=== PATIENT | female | born 1990 | race Hispanic/Latino ===

== ENCOUNTER 2022-01-03 18:15 | Observation (INO) | payer OTHER, SELFPAY ==
[2022-01-03 18:40] VITALS: BP 117/58; PULSE 79
[2022-01-03 18:47] VITALS: TEMP 36.8
[2022-01-03 18:59] LABS: Appearance Urine Clear (Clear); Bilirubin Urine Negative (Negative); Color Urine Yellow (Yellow); Glucose Urine UA Negative (Negative); Ketones Urine Trace mg/dL (Negative); Leukocyte Esterase Ur Trace LEU/UL (Negative); Nitrate Urine Negative (Negative); Protein Urine Negative (Negative); Specific Grav Ur 1.025 (1.001-1.035); Urobilinogen Urine 0.2 mg/dL (<2.0)
[2022-01-03 19:02] LABS: Add Urine Microscopic? YES; Blood Urine Trace-Intact (Negative)
[2022-01-03 19:05] LABS: Bacteria Urine Trace /hpf; Mucus Urine Few /lpf; Squamous Epithelial Cell Urine Moderate /hpf (Few)
--- NOTE | 2022-01-03 19:29 | PC.NURSE ---
Updated Dr. Tay on patient UA results. Patient states she is having pain in her upper abdomen below the sternum. Patient states pain is intermittent and does not increase with palpation. FHT reactive and no contractions were noted during monitoring. VSS. Patient denies nausea/emesis. Order to discharge patient to home with instruction to follow-up in office Monday or Monday this week.
--- NOTE | 2022-01-03 19:31 | PC.NURSE ---
Plan of care discussed with patient. Patient instructed to follow-up in her OB office tomorrow or Monday as instructed by Dr. Tay. Patient states understanding. Patient instructed to take tylenol for pain and pepcid for indigestion if needed. Patient states understanding. Patient instructed to return to OB unit for evaluation if pain increases or changes. Patient agreeable to discharge and denies questions.
--- NOTE | 2022-01-03 19:47 | LDADM ---
This patient, Ladi Ochoa, was admitted to [facility] on 01/03/22 at 18:15. Plans for labor, pain management and were discussed with patient. Patient/family oriented to hospital policies and general routines including ID bracelet, bed and alarms, visiting hours, pain management, procedures, bathroom and other care routines, personal items, smoking policy, room service/diet and guest tray routines, infant security routines, and visiting hours. Patient/Family are encouraged to report perceived risks to care and to ask questions if they do not understand what they are told or what they should do. See OBIX for further documentation.
--- NOTE | 2022-01-24 13:51 | PM.OBTRLD ---
OB - Triage/Final Diagnosis Visit Information Comments/Additional reasons for admission: I have assessed the risk for this patient, Ladi Ochoa, and determined that she would benefit from observation care. Evaluation Laboratory results: Laboratory Tests 01/03/22 18:47 Urine Color Yellow Urine Appearance Clear Urine pH 7.0 Ur Specific [place] 1.025 Urine Protein Negative Urine Glucose (UA) Negative Urine Ketones Trace Ur Blood (Man) Trace-intact Urine Nitrate Negative Urine Bilirubin Negative Urine Urobilinogen 0.2 Leukocyte Esterase Rfl Trace H Urine RBC 3-5 H Urine WBC 4-6 H Ur Squamous Epith Cells Moderate H Urine Bacteria Trace Hyaline Casts 1-2 Urine Mucus Few H Final Diagnosis (1) Abdominal pain: Code(s): R10.9 - Unspecified abdominal pain Status: Acute
== END 2022-01-03 19:47 | disposition home or self-care (01) ==
PROVIDERS: Admitting Provider Obstetrics & Gynecology; Visit Provider Obstetrics & Gynecology
DX: O26.893 Other specified pregnancy related conditions, third trimester (principal); R10.9 Unspecified abdominal pain; Z3A.28 28 weeks gestation of pregnancy
CPT/HCPCS: 81001; G0378; G0379

== ENCOUNTER 2022-03-13 22:54 | Inpatient (IN) | payer OTHER, SELFPAY ==
[2022-03-13 22:55] VITALS: TEMP 36.6
[2022-03-13 23:15] VITALS: BP 119/105; PULSE 79
[2022-03-13 23:16] VITALS: BP 120/75; PULSE 82
[2022-03-13 23:31] VITALS: BP 131/75; PULSE 75
[2022-03-13 23:45] VITALS: BP 126/82; PULSE 87
[2022-03-14] VITALS (63 sets, daily range): BP systolic 84–145; BP diastolic 47–88; PULSE 54–111; RESP 16–20; TEMP 36.4–36.9; O2SAT 96–100; BMI 35.4
[2022-03-14 00:12] LABS: Basophils Percent Auto 0.3 % (0.2-1.2); Eosinophils Absolute Auto 0.1 K/mm3 (0-0.3); Hematocrit 34.9 % (37.0-47.0); Immature Granulocyte Absolute 0.08 K/mm3 (0.00-0.031); Immature Granulocyte Percent A 0.8 % (0-0.5); Lymphocytes Absolute Auto 2.16 K/mm3 (0.9-3.2); Lymphocytes Percent Auto 21.8 % (18.3-44.2); Mean Corpuscular HGB Conc 34.4 g/dl (32-36); Mean Corpuscular Hemoglobin 31.8 pg (26-34); Mean Corpuscular Volume 92.6 fl (80-100); Mean Platelet Volume 10.3 fl (7.4-10.4); Monocytes Absolute Auto 0.7 K/mm3 (0.1-0.6); Monocytes Percent Auto 6.6 % (2.6-8.5); Neutrophils Absolute Auto 6.9 K/mm3 (1.3-6.7); Neutrophils Percent Auto 69.5 % (45.5-73.1); Platelet Count Result 214 k/mm3 (150-375); Red Blood Count 3.77 M/mm3 (4.2-5.4); Red Cell Distribution Width 13.3 % (11.5-14.5); White Blood Count 9.9 K/mm3 (4.5-10.0)
--- NOTE | 2022-03-14 00:23 | P.PNAN_ITS ---
Anes - Eval Pre Procedure Procedure: labor epidural Date/Time: 03/14/22 00:23 Pre Op Diagnosis: contractions Patient Data Age: 31 Gender: F Height: Weight: Last Vital Signs Pulse 65 03/14/22 00:16 BP 129/76 03/14/22 00:16 Allergies Allergy/AdvReac Type Severity Reaction Status Date / Time No Known Allergies Allergy Verified 02/21/22 14:24 Home Medications Medication Instructions Recorded Confirmed Type No Home Medications 02/21/22 02/21/22 History Laboratory Tests 03/14/22 03/14/22 00:06 00:06 WBC 9.9 K/mm3 K/mm3 (4.5-10.0) RBC 3.77 M/mm3 L M/mm3 (4.2-5.4) Hgb 12.0 g/dL g/dL (12.0-15.0) Hct 34.9 % L % (37.0-47.0) MCV 92.6 fl fl (80-100) MCH 31.8 pg pg (26-34) MCHC 34.4 g/dl g/dl (32-36) RDW 13.3 % % (11.5-14.5) Plt Count 214 k/mm3 k/mm3 (150-375) MPV 10.3 fl fl (7.4-10.4) Immature Gran % (Auto) 0.8 % H % (0-0.5) Neut % (Auto) 69.5 % % (45.5-73.1) Lymph % (Auto) 21.8 % % (18.3-44.2) [place] % (Auto) 6.6 % % (2.6-8.5) Eos % (Auto) 1.0 % % (0-4.4) Baso % (Auto) 0.3 % % (0.2-1.2) Lymph # (Auto) 2.16 K/mm3 K/mm3 (0.9-3.2) [place] # (Auto) 0.7 K/mm3 H K/mm3 (0.1-0.6) Eos # (Auto) 0.1 K/mm3 K/mm3 (0-0.3) Baso # (Auto) 0.0 K/mm3 K/mm3 (0.0-0.1) Abs Immat Gran (auto) 0.08 K/mm3 H K/mm3 (0.00-0.031) Absolute Neuts (auto) 6.9 K/mm3 H K/mm3 (1.3-6.7) Absolute Nucleated RBC 0.0 K/mm3 K/mm3 (0.0-0.012) Nucleated RBC % 0.0 % % (0.0-0.2) RPR Pending Patient hx anesthesia problems: none Family hx anesthesia problems: none Results Review: All pre-operative results and documents have been reviewed as part of the pre- operative evaluation. [facility] Social History Social History Substance use: never Spiritual care concerns: No Exam Day of Procedure 03/14/22 00:23 Patient weight: obese Heart: regular rate and rhythm Lungs: normal air movement Airway: Mallampati scale Neurological: alert and oriented
[2022-03-14] MEDS: LACTATED RINGERS 1,000 ML 125 ML IV CONT (01:16)
[2022-03-14] MEDS: OXYTOCIN 30 UNITS/NS 500 ML 30 UNITS/500 ML BAG IV CONT (02:46)
[2022-03-14 02:50] LABS: HIV 1/2 Ab P24 Ag Result Negative (Negative)
--- OUTSIDE RECORDS SUMMARY | 2022-03-14 02:52 | XMS_ITS | Encounter Summary ---
:1990 Author Reason for Visit OB visit OB [id number] EDC 03/22/2022 LMP 06/13/2021 Assessment and Plan 1. Routine care Discussion Note: None recorded.Patient educational handouts: No information available. Plan of Care Reminders Provider Appointments Ob Routine 03/15/2022 10:15AM Jeimy rosen CNM Lab None recorded. ? ? Referral None recorded. ? ? Procedures None recorded. ? ? Surgeries None recorded. ? ? Imaging None recorded. ? ? Medications No Medications Reported Medications Administered None recorded. Vitals Height Weight BMI Blood Pressure 5 ft 1 in 185 lbs 35 kg/m2 108/71 mm[Hg] Results Lab Results None recorded. Allergies Code Code System Name Reaction Severity Onset NKDA ? ? ? Problems Name Status Onset Date Source ? Active 11/04/2021 ? Procedures None recorded. Vaccine List None recorded. Social History Tobacco Smoking Status Never Smoker Do you have difficulty walking or climbing stairs? N What type of diet are you following? REGULAR What is the highest grade or level of school you have comple elvi or [id number] the highest degree you have received? Are you able to walk? YESLIMIT Are you able to care for yourself? Y Has tobacco cessation counseling been provided? N Are you blind or do you have difficulty seeing? N Have you used IV drugs? N Do you have smoke and carbon monoxide detectors in your home ? Y How much tobacco do you chew? none In the 14 days before symptom onsetbernadette
--- OUTSIDE RECORDS SUMMARY | 2022-03-14 02:52 | XMS_ITS | Encounter Summary ---
:1990 Author Reason for Visit OB visit OB [id number] EDC 03/22/2022 LMP Assessment and Plan 1. Routine care Discussion [...] BMI Blood Pressure 5 ft 1 in 183 lbs 34.6 kg/m2 107/72 mm[Hg] Results Lab Results None recorded. Allergies [...] of school you have comple elvi or [id number] the highest degree you have received? Are [...] none In the 14 days before symptom onset, have you had
--- OUTSIDE RECORDS SUMMARY | 2022-03-14 02:52 | XMS_ITS | Encounter Summary ---
:1990 Author Reason for Visit OB visit OB [id number] EDC 03/22/2022 LMP 06/13/2021 Assessment and Plan Assessment Note Patient is 30___weeks . Discuss ed plan. 1. Routine care Discussion Note: None recorded.Patient [...] BMI Blood Pressure 5 ft 1 in 177 lbs 33.4 kg/m2 106/65 mm[Hg] Results Lab Results None recorded. Allergies [...] of school you have comple elvi or [id number] the highest degree you have received? Are you able to walk? YESLIMIT Are you able to care for yourself? Y Has tobacco cessation counseling been provided? N Are you blind or do you have difficulty seeing? N Have you used IV drugs? N Do you have smoke and carbon monoxide detectors in y
--- OUTSIDE RECORDS SUMMARY | 2022-03-14 02:52 | XMS_ITS ---
:1990 Author Care Team Providers Name Role Phone Ally America Meagan Primary Care Provider Unavailable Allergies Code Code System Name Reaction Severity Status Onset NKDA ? Medications Name Status Start Date Stop Date ? ? cephalexin 500 mg capsule Completed ? 2021 clotrimazole-betamethasone 1 %-0.05 % topical cream Unknown ? Not available APPLY TO THE AFFECTED AND SURROUNDING A REAS OF SKIN BY TOPICAL ROUTE 2 TIMES PER DAY IN THE MORNING AND EVENING FOR 2 WEEKS Cytotec 200 mcg tablet Completed 11/04/2016 2 insert 4 by by vagina route all at once Problems Name Status Onset Date Source ? Active 11/04/2021 ? Procedures Date Name Performed by ? 11/04/2021 US, Obstetric, 2Nd or 3Rd Trimester Shari cruz [address] [place] [address] ([address]) 12/03/2021 US, Obstetric, Follow-up [place] [address] [place] [address] ([address]) 01/19/2022 , Obstetric, Follow-up [place] [address] [place] [address] ([address]) Results Lab Results Date Name Specimen Result Interpretation Description Value Range Status Address ? 02/21/2022 Culture: Group ? Result see ? Padmini ramey [facility] Strep Screen Report results I nfectious bel
--- OUTSIDE RECORDS SUMMARY | 2022-03-14 02:52 | XMS_ITS ---
:1990 Author Care Team Providers Name Role Phone Trevor, Yamil Primary Care Provider Unavailable Allergies Code Code System Name Reaction Severity Status Onset NKDA ? Medications Name Status Start Date Stop Date ? ? Bactrim DS 800 mg-160 mg tablet Completed ? 09/04/2019 Take 1 tablet every 12 hours by oral route for 10 days. Calcium with Vitamin D 600 mg-10 mcg (400 unit) tablet Completed ? 04/20/2021 Take 1 tablet twice a day by oral route. cephalexin 500 mg capsule Active ? Not av ailable Linzess 290 mcg capsule Completed ? 11/18/19 20 Take 1 capsule every day by oral route. multivitamin tablet Completed ? 04/20/2021 Take 1 tablet every day by oral route. Nexplanon Completed 11/14/2016 04/20/2021 Nexplanon 68 mg subdermal implant Completed ? 04/20/2021 Inject 1 implant by subcutaneous route. Vitamin tablet Active ? Not avai lable Take 1 tablet every day by oral route as directed. pyridoxine (vitamin B6) 25 mg tablet Active ? Not available Take 1 tablet 3 times a day by oral route as needed. Seasonique 0.15 mg-30 mcg (84)/10 mcg(7) tablets,3 month dose pa ck Completed ? 09/21/2021 Take 1 tablet every day by oral route as directed. TobraDex 0.3 %-0.1 % eye drops,suspension Completed ? 09/04/2019 INSTILL 1 DROP INTO AFFECTED EYE(S) BY OPHTHALMIC ROUTE EVERY 6 HOURS Unisom (doxylamine) 25 mg tablet Active ? Not available Take 1 tablet every day by oral route at bedtime. Problems Name Status Onset Date Source ? Unknown 09/21/2021 ? Procedu
--- OUTSIDE RECORDS SUMMARY | 2022-03-14 02:52 | XMS_ITS | Encounter Summary ---
:1990 Author Reason for Visit None recorded. Assessment and Plan 1. screening ? US, obstetric, follow-up Discussion Note: None recorded.Patient educational handouts: No information available. Plan of Care Reminders Provider Appointments Ob Routine 03/15/2022 10:15AM Jeimy rosen CNM Lab None recorded. ? ? Referral None recorded. ? ? Procedures None recorded. ? ? Surgeries None recorded. ? ? Imaging US, Obstetric, Follow-up 01/19/2022 Marcio ewing Medications No Medications Reported Medications Administered None recorded. Vitals None recorded. Results Lab Results None recorded. Allergies Code Code System Name Reaction Severity Onset NKDA ? ? ? Problems Name Status Onset Date Source ? Active 11/04/2021 ? Procedures Date Name Performed by ? 01/19/2022 US, Obstetric, Follow-up [place] [address] [place] [address] ([address]) Vaccine List None recorded. Social History Tobacco Smoking Status Never Smoker Do you have difficulty walking or climbing stairs? N What type of diet are you following? REGULAR What is the highest grade or level of school you have comple elvi or [id number] the highest degree you have received? Are you able to walk? YESLIMIT Are you able to care for yourself? Y Has tobacco cessation counseling been provided? N Are you blind or do you have difficulty seeing? N Have
--- OUTSIDE RECORDS SUMMARY | 2022-03-14 02:52 | XMS_ITS | Encounter Summary ---
:1990 Author Reason for Visit OB visit OB [id number] EDC 03/22/2022 LMP 06/13/2021 Assessment and Plan [...] BMI Blood Pressure 5 ft 1 in 187 lbs 35.3 kg/m2 107/69 mm[Hg] Results Lab Results None recorded. Allergies [...] of school you have comple elvi or [id number] the highest degree you have received? Are [...]
--- OUTSIDE RECORDS SUMMARY | 2022-03-14 02:52 | XMS_ITS | Encounter Summary ---
:1990 Author Reason for Visit OB visit OB [id number] EDC 03/22/2022 LMP 06/13/2021 Assessment and Plan [...] BMI Blood Pressure 5 ft 1 in 181 lbs 34.2 kg/m2 103/67 mm[Hg] Results Lab Results None recorded. Allergies Code Code System Name Reaction Severity Onset NKDA ? ? ? Problems Name Status Onset Date Source ? Active 11/04/2021 ? Procedures Date Name Performed by ? 01/19/2022 US, Obstetric, Follow-up [place] [address] [place] [address] ([address]) Vaccine List None recorded. Social History Tobacco Smoking Status Never Smoker Do you have difficulty walking or climbing stairs? N What type of diet are you following? REGULAR What is the highest grade or level of school you have comple elvi or [id number] the highest degree you have received? Are you able to walk? YESLIMIT Are you able to care for yourself? Y Has tobacco cessation counseling been provided? N
--- NOTE | 2022-03-14 02:56 | PM.OBPRVD ---
OB - Delivery Note Procedure Delivery date: 03/14/22 Procedure: Delivery monitor: External FHT and External Uterine Route of delivery: Laceration Description: Labial (1st degree) Delivery repair: vicryl Quantitative Blood Loss (ml): 300 Anesthesia type: Epidural Complications: none Baby Date of : 03/14/22 Weeks of gestation at delivery: 38 Weight (pounds): 7 Weight (ounces): 1 Placenta delivery description: Spontaneous score one minute: 9 score five minutes: 9
[2022-03-14 03:02] LABS: Rubella IgG Antibody 7.5 IU/ML
[2022-03-14 03:12] LABS: Hepatitis B Surface Antigen Negative (Negative)
[2022-03-14] MEDS: OXYTOCIN 30 UNITS/NS 500 ML 30 UNITS/500 ML BAG 125 UNITS IV CONT (03:22)
[2022-03-14 07:33] LABS: Rapid Plasma Reagin Non-Reactive (NonReactive)
--- NOTE | 2022-03-14 08:38 | P.PNOB_ITS ---
OB - PN: Subj Subjective Date/time seen: 03/14/22 08:38 Patient comments: no complaints, pain well controlled, incisional pain, tolerating diet and flatus present OB - PN: Obj Data Labs CBC & Chem 7: 03/14/22 00:06 Labs: Laboratory Results - last 24 hr 03/14/22 03/14/22 03/14/22 00:06 00:06 00:06 WBC 9.9 RBC 3.77 L Hgb 12.0 Hct 34.9 L MCV 92.6 MCH 31.8 MCHC 34.4 RDW 13.3 Plt Count 214 MPV 10.3 Immature Gran % (Auto) 0.8 H Neut % (Auto) 69.5 Lymph % (Auto) 21.8 [place] % (Auto) 6.6 Eos % (Auto) 1.0 Baso % (Auto) 0.3 Lymph # (Auto) 2.16 [place] # (Auto) 0.7 H Eos # (Auto) 0.1 Baso # (Auto) 0.0 Abs Immat Gran (auto) 0.08 H Absolute Neuts (auto) 6.9 H Absolute Nucleated RBC 0.0 Nucleated RBC % 0.0 RPR Non-reactive Hep Bs Antigen HIV 1&2 Ab/P24 Ag 4thGn Rubella IgG Antibody Blood Type O Positive Antibody Screen Negative 03/14/22 03/14/22 03/14/22 01:38 01:38 01:38 WBC RBC Hgb Hct MCV MCH MCHC RDW Plt Count MPV Immature Gran % (Auto) Neut % (Auto) Lymph % (Auto) [place] % (Auto) Eos % (Auto) Baso % (Auto) Lymph # (Auto) [place] # (Auto) Eos # (Auto) Baso # (Auto) Abs Immat Gran (auto) Absolute Neuts (auto) Absolute Nucleated RBC Nucleated RBC % RPR Hep Bs Antigen Negative HIV 1&2 Ab/P24 Ag 4thGn Negative Rubella IgG Antibody 7.5 L Blood Type Antibody Screen OB - PN A/P Plan day: 1 Plan: routine care Comments: No problems, routine care Time Spent With Patient Time: Total time spent is greater than 50% in coordination of care (as documented) at patient's floor/unit and/or counseling patient: Exam Const: General: comfortable, no acute distress and alert Resp: Effort & Inspection: normal respiratory effort Auscultation: no crackles, no rales and no rhonchi Cardio: Rate: regular rate Heart sounds: no click, no murmurs and no rubs GI: Inspection: non-distended GI Palp: No Tenderness to palpation present (GI) Auscultation: normal bowel sounds Other: Incision - CDI Extrem: General: normal to inspection, no pedal edema and no calf tenderness
--- NOTE | 2022-03-14 11:33 | PC.NURSE ---
1011 - Introductions were made, then consulted with patient to assess needs related to . Mother led the conversation with her?plans to feed?her bottle and breast. There has been separation of mom and baby. Resources provided for inpatient and outpatient services using a resource guide and mom/baby guide. Mother states she has not made milk in the past and doesn't have milk now. Education shared related to milk production and milk supply. Mother voiced understanding of information and requests assistance to initiate pumping. Breast pump provided due to separation of mom and baby. Instructions given on cleaning, care, usage, that there should be no pain, pumping schedule for milk production, collection, and storage of human milk. Parents are encouraged to record pumping schedule. Patient was assessed for correct placement, flange size, to pump for comfort and nipple stretching/stimulation for adequate milk production every 3 hours (8 times in 24 hours) 1-2 times at night. The parents voiced understanding and appreciation of the education shared. Reviewed resources with EBTF handout and the mom/baby guide for additional resource information. Reported to the primary RN.
--- NOTE | 2022-03-14 15:35 | PC.NURSE ---
Mother encouraged to pump every three hours.
[2022-03-14] MEDS: IBUPROFEN 600 MG TABLET PO (20:35)
[2022-03-14] MEDS: ACETAMINOPHEN 325 MG TABLET 650 MG PO (20:38)
[2022-03-15] VITALS: BP 106/63; PULSE 71; RESP 16; TEMP 36.8
[2022-03-15 05:59] LABS: Hematocrit 32.8 % (37.0-47.0)
--- NOTE | 2022-03-15 08:06 | P.PNOB_ITS ---
OB - PN: Subj Subjective Date/time seen: 03/15/22 08:06 Patient comments: no complaints and pain well controlled baby status: NICU [place] feeding status: pumping and bottle feeding OB - PN: Obj Data Labs CBC & Chem 7: 03/15/22 05:36 Labs: Laboratory Results - last 24 hr 03/15/22 05:36 Hgb 11.0 L Hct 32.8 L OB - PN A/P Plan day: 1 Plan: routine care and discharge home Time Spent With Patient Time: Total time spent is greater than 50% in coordination of care (as documented) at patient's floor/unit and/or counseling patient: Time with patient: less than 15 minutes Exam Narrative: NAD abdomen soft, nontender, fundus firm below the umbilicus Extremities nontender, 1+ edema
--- NOTE | 2022-03-15 08:08 | PM.DS ---
DS: Admitting Diagnosis Discharge Date 03/15/2022 Admitting Diagnosis term IUP, labor DS: Discharge Diagnosis Discharge Diagnosis (1) , delivered: Code(s): O80 - Encounter for full-term uncomplicated delivery Status: Acute DS: Summary Hospital Course Hospital Course: Pt was admitted in labor at term and had an uncomplicated vaginal delivery and course. Time Spent with Patient Time attestation: Total time spent providing and/or coordinating discharge services: Exam Narrative: NAD abdomen soft, appropriately tender Ext non tender, 1+ edema DS: Data Data Completed and Pending Labs on day of discharge: Labs from last 24 hours 03/15/22 05:36 Hgb 11.0 L Hct 32.8 L Discharge Plan Discharge Attending physician on discharge: Susannah Brown Discharging Clinician: Susannah Brown Anticipated Discharge Date/Time: 03/15/22 08:07 Patient Disposition: Home, Self-Care Activity: pelvic rest Diet: regular Patient Instructions: Antibiotic Form Stand Alone Forms: General Discharge Information Follow-up/Referrals: Lani Tay MD [Physician] - 4 Weeks Discharge Medications: No Action No Home Medications Date of admission: 03/13/22 22:54 Primary Care Provider: America Canales Admitting Provider: Lani Tay Attending physician on admission: Lani Tay Condition: Stable
[2022-03-15] MEDS: MULTIVIT/MIN/PREN/FOL AC/IRON TABLET 1 TAB PO (08:17)
[2022-03-15] MEDS: DOCUSATE SODIUM 100 MG CAPSULE PO (08:17)
[2022-03-15] MEDS: MEASLES,MUMPS,RUBELLA VACCINE 0.5 ML VIAL SUB-Q (08:23)
--- NOTE | 2022-03-15 08:43 | WPDANLDPN2 ---
Anes-Prog Note L&D Date/Time: 03/15/22 08:43 Comfortable throughout: labor and delivery Neuraxial method: epidural Epidural/Spinal procedure site: clean & non-tender Neuro status: Neuro function grossly intact. Cardiovascular status: normal Respiratory status: normal Airway patency: baseline Mental status: baseline Post-Op hydration status: normal Vital Signs: Last Vital Signs Temp 36.8 C 03/15/22 00:00 Pulse 71 03/15/22 00:00 Resp 16 03/15/22 00:00 BP 106/63 03/15/22 00:00 Pulse Ox 97 03/14/22 20:15 O2 Del Method Room Air 03/15/22 00:00 Pain score (VAS): 10 Post-procedural complaints: none Patient feedback: Patient satisfied with anesthetic care.
[2022-03-15 09:00] VITALS: BP 123/80; PULSE 87; RESP 18; TEMP 36.2; O2SAT 99
--- NOTE | 2022-03-15 09:57 | PC.NURSE ---
0930 - Primary RN is present in the room discharging mother. Mother is encouraged to stimulation for adequate milk production every 3 hours (8 times in 24 hours) 1-2 times at night. Mother pumped about a hour ago before heading to [facility] to see her . Mother voiced understanding of the education shared and encouraged to work with at [facility] and mother states she has met the RN there.
== END 2022-03-15 09:32 | disposition home or self-care (01) | DRG 560 ==
LOC: ANHOB2 03-15 08:50 → ANHLDR 03-17 08:08
PROVIDERS: Admitting Provider Obstetrics & Gynecology; PCP Advanced Practice Midwife; Visit Provider Obstetrics & Gynecology
DX: O69.81X0 Labor and delivery complicated by cord around neck, without compression, not applicable or unspecified (principal); Z37.0 Single live birth; Z3A.38 38 weeks gestation of pregnancy; O70.0 First degree perineal laceration during delivery
CPT/HCPCS: 36415; 84112; 85014; 85018; 85025; 86592; 86703; 86762; 86850; 86900; 86901; 87340; 90710; A9270; G0432; J2590; J2795; J7120